=== PATIENT | male | born 1995 | race Caucasian/White ===

== ENCOUNTER 2022-11-04 06:12 | Emergency (ER) | payer BC, SELFPAY ==
--- NOTE | ~2022-11-04 | CT_ITS ---
EXAMINATION: CT CERVICAL SPINE without contrast CLINICAL INFORMATION: Reason for Exam trauma COMPARISON: No prior CT available, TECHNIQUE: Computed axial sagittal and coronal images acquired using department's standard protocol. This CT examination was performed using dose optimization techniques as appropriate, variously including the following: *Automated exposure control *Adjustment of mA and/or kV according to patient size (this includes techniques or standardized protocols for targeted exams where dose is matched to indication/reason for exam; i.e. extremities or head) *Use of iterative reconstruction technique CONTRAST: None DLP: 1248 mGy-cm FINDINGS: SKULL BASE: Visualized structures at skull base are normal, Included facial sinuses are clear, CERVICAL VERTEBRAE: Seven cervical vertebrae identified maintaining proper height and alignment, loss of normal cervical lordosis likely spasm. DISCS: C1-C2: There is no CT evidence of significant osseous narrowing of the central canal or neural foramen. C2-C3: There is no CT evidence of significant osseous narrowing of the central canal or neural foramen. C3-C4: There is no CT evidence of significant osseous narrowing of the central canal or neural foramen. C4-C5: There is no CT evidence of significant osseous narrowing of the central canal or neural foramen. C5-C6: There is no CT evidence of significant osseous narrowing of the central canal or neural foramen. C6-C7: There is no CT evidence of significant osseous narrowing of the central canal or neural foramen. C7-T1: There is no CT evidence of significant osseous narrowing of the central canal or neural foramen. PARAVERTEBRAL SOFT TISSUE: Paravertebral soft tissues unremarkable. CT/CT cervical spine wo IV con IMPRESSION: No CT evidence of fast cervical spine fractures. Loss of normal cervical lordosis likely spasm.
--- NOTE | ~2022-11-04 | XR_ITS ---
EXAMINATION: XR RIBS, RIGHT CLINICAL INFORMATION: Pain T8-T10 COMPARISON: None TECHNIQUE: Single chest image and 4 images of the right ribs. FINDINGS: The single chest image demonstrates no pneumothorax or effusion. The underlying lung field is grossly clear. The cardiac silhouette is within normal limits. There is no effusion. No pneumothorax. Detailed imaging of the right ribs does not demonstrate evidence for fracture. XR/XR ribs RT min 3V w CXR1V IMPRESSION: No fracture of the right ribs. No pneumothorax or effusion.
--- NOTE | ~2022-11-04 | CT_ITS ---
CT head/brain wo IV con CLINICAL INFORMATION: Reason for Exam trauma COMPARISON: No prior CT scan available for comparison. TECHNIQUE: Department standard protocol. This CT examination was performed using dose optimization techniques as appropriate, variously including the following: *Automated exposure control *Adjustment of mA and/or kV according to patient size (this includes techniques or standardized protocols for targeted exams where dose is matched to indication/reason for exam; i.e. extremities or head) *Use of iterative reconstruction technique DLP: 1248 mGy-cm FINDINGS: CEREBRAL HEMISPHERES: There is no evidence of intra-axial or extra-axial mass, hemorrhage or acute infarct. BRAIN PARENCHYMA: Normal wilhelm-white matter differentiation. SUBDURAL SPACE: No bleed. BASAL GANGLIA AND PINEAL GLAND: Unremarkable VENTRICLES: Symmetric and normal in size. CEREBELLUM AND BRAINSTEM: No space-occupying mass, hemorrhage or acute infarct. CEREBELLOPONTINE ANGLES: No lesion found. ORBITS: No intraorbital mass. VESSELS: Unremarkable SKULL BASE: Unremarkable INCLUDED SINUSES AT SKULL BASE: There is a retention cyst in the floor of the left maxillary sinus otherwise included sinuses at skull base are clear. SKULL AND SKIN: No fracture or bone lesion found. CT/CT head/brain wo IV con IMPRESSION: * No CT evidence of intracranial space-occupying mass, bleed or infarct. * Retention cyst in the floor of the left maxillary sinus.
[2022-11-04 06:26] VITALS: BP 146/95; PULSE 70; RESP 16; TEMP 36.1; O2SAT 100; BMI 55.3
--- NOTE | 2022-11-04 07:57 | ED_ITS ---
HPI - Fall General Chief Complaint: Fall Stated Complaint: Fall/Head Inj/ Confused after fall Time Seen by Provider: 11/04/22 07:48 Source: patient and family Mode of arrival: ambulatory Limitations: no limitations History of Present Illness HPI Narrative: 27-year-old male presents emergency department after slipping on ice and hitting the back of his head as well as hurting his right ribs. Patient denies any other injuries he denies loss conscious denies fevers chills cough shortness of breath. Patient states it was slip and fall. MD complaint: fall Related Data Allergies Allergy/AdvReac Type Severity Reaction Status Date / Time No Known Allergies Allergy Verified 11/04/22 06:32 [facility] Social History Social History Alcohol intake: current Alcohol intake frequency: holidays/special occasions only Smoked in Last 30 Days: No Use of substances other than those prescribed or required for medical reasons: Yes Substance Use Type: Marijuana Substance Use Frequency: Occasionally Last Used Substance: Days (ago) Any prior treatment program specific to substance use: No Advance Directives: No Advance Directives Information Provided: No Physical Exam Vital Signs: Vital Signs: Last Vital Signs Temp 98.0 F 11/04/22 08:24 Pulse 64 11/04/22 08:24 Resp 18 11/04/22 08:24 BP 142/91 H 11/04/22 08:24 Pulse Ox 100 11/04/22 08:24 O2 Del Method 11/04/22 08:24 BMI result Body Mass Index 55.3 Medications Administered Discontinued Medications Generic Name Dose Route Start Last Admin Trade Name Freq PRN Reason Stop Dose Admin Acetaminophen 650 mg 11/04/22 08:03 11/04/22 08:09 Acetaminophen 325 Mg Tablet PO 11/04/22 08:04 650 mg ONCE ONE Administration Ketorolac Tromethamine 15 mg 11/04/22 08:03 11/04/22 08:11 Ketorolac Tromethamine 30 Mg/Ml Vial IM 11/04/22 08:04 Not Given ONCE ONE Medical Decision Making Medical Decision Making [facility] Narrative: CTs are negative x-rays ordered after the patient has department for 5 hours after I saw the patient. I will check x-rays I did order incentive spirometer for rib contusion versus fracture. XR chest is negative I educated the patient on concussion and follow up and will send home with a work note. Differential Diagnosis Differential Diagnoses: The differential diagnosis associated with the presentation includes Rib fractures versus rib contusion head injury or cervical spine injury patient was sent for CTs and x-rays. Admission/Observation Consideration of admission/observation: Escalation of care including admission/observation considered Lab Data MDM Lab Attestation statement: I reviewed the patient's lab results. Independent Interpretation I performed an independent interpretation of an: Plain X-Ray and CT Scan Radiology Impression Discussion of test interpretation with radiology: I have reviewed the radiologist's reading. Independent Historian Clinical information obtained from an independent historian. History obtained from or confirmed by: Parent Prescription Management I considered prescription management with: Pain Medication Discharge Plan Discharge Clinical Impression: Fall, Head injury, Contusion of rib on right side Patient Disposition: Home, Self-Care Instructions: Concussion (ED), Head Injury (ED), Contusion in Adults (ED), Post Concussion Syndrome (ED), Rib Contusion (ED) Additional Instructions: please call follow-up with your doctor if you have any other concerns please do not hesitate to come back to emergency department. Stand Alone Forms: Work/School Release
[2022-11-04] MEDS: Acetaminophen 325 MG TABLET 650 MG PO (08:09)
--- NOTE | 2022-11-04 08:13 | PC.NURSE ---
small scabbed area on right side of head and somewhat of a bump noted. not actively bleeding at this time
[2022-11-04 08:24] VITALS: BP 142/91; PULSE 64; RESP 18; TEMP 36.7; O2SAT 100
== END 2022-11-04 09:49 | disposition home or self-care (01) ==
PROVIDERS: Emergency Provider Student in an Organized Health Care Education/Training Program
DX: S29.9XXA Unspecified injury of thorax, initial encounter (principal); S09.90XA Unspecified injury of head, initial encounter; R07.81 Pleurodynia; M54.2 Cervicalgia; R51.9 Headache, unspecified; W00.0XXA Fall on same level due to ice and snow, initial encounter; Y93.9 Activity, unspecified; Y92.9 Unspecified place or not applicable; Y99.9 Unspecified external cause status
CPT/HCPCS: 70450; 71101; 72125; 99284